=== PATIENT | male | born 1950 | race African-American/Black ===

== ENCOUNTER 2017-07-14 08:42 | Day surgery (SDC) | payer MEDICARE, BC ==
[~2017-07-14] VITALS: Ht 177.8 cm; Wt 77.1 kg
--- NOTE | ~2017-07-14 | OP ---
PATIENT NAME: STEVE MCARTHUR JR MEDICAL RECORD: [id number] :46 LOCATION:[facility] ADMISSION DATE: SURGEON: STEVE JURADO MD DATE OF OPERATION: 07/14/2017 PREOPERATIVE DIAGNOSIS: Chronic kidney disease IV. POSTOPERATIVE DIAGNOSIS: Chronic kidney disease IV REFERRING PHYSICIAN: Wilber Almaguer MD OPERATION PERFORMED: Creation of a right wrist Benjamin type radiocephalic arteriovenous fistula. SURGEON: Steve Jurado MD ANESTHESIA: Regional nerve block and general anesthesia via LMA per LOGISTICS SERVICE REPRESENTATIVE. PREOPERATIVE NOTE: Mr. Mcarthur is a very nice 66-year-old -Lithuanian male with chronic renal insufficiency who was thought to likely require dialysis within the next 6 months or a year with CKD IV. He was referred for dialysis access construction. DESCRIPTION OF PROCEDURE: With the patient under nerve block and then also general anesthesia, all per LOGISTICS SERVICE REPRESENTATIVE, he was prepped and draped in a sterile manner. The skin of the forearm and arm was treated with topical nitroglycerin and a [place] drain used as a proximal venous tourniquet. I did an examination with Duplex ultrasound and confirmed that the right radial artery, though it had some atheromatous changes and calcifications, appeared to be of adequate size and quality to support a fistula and the cephalic vein at the wrist appeared satisfactory, about 4 mm in diameter. I made a longitudinal incision along the radial aspect of the wrist and exposed the cephalic vein and radial artery. Tributaries and branches were divided between Vicryl ties and divided with electrocautery. The vein distally was ligated and then transected and bevelled. It was treated with topical papaverine and hydrostatically distended with heparinized saline and gently prepared for anastomosis. The artery was occluded proximally and distally with doubly-looped Silastic tapes. It was opened and flushed proximally and distally with heparinized saline. There was a modest atheroma just at the incision site, for which reason I extended the arteriotomy just a bit proximally and had to spatulate the vein a bit more. The vein was anastomosed at an end, a vein to side of artery with running 7-0 Prolene, and upon completion and release of the occluding loops, excellent flow immediately developed within the fistula and the suture line was hemostatic. The wound was irrigated with saline, some fibrillar was utilized to complete hemostasis and the wound was closed with interrupted inverted 3-0 Vicryl and running intracuticular 4-0 Monocryl and Dermabond glue. It was dressed in the usual manner and the patient awakened and taken to the recovery room in stable condition. He will go home today with a prescription for [place] 5/325, #14, no refills, and he will return to see me in my office next week. TRANSINT:[id number] Voice Confirmation ID: [id number] DOCUMENT ID: [id number] OPERATIVE REPORT [id number] STEVE MCARTHUR JR, JAMES MD CC: WILBER ALMAGUER MD [id number] DICTATION DATE: 07/14/17 161 LOG CUTTER: 07/14/17 1657 [facility] [address] [place] [address]
[2017-07-14] MEDS ORDERED: VITAMIN D250000 UNIT (09:10)
[2017-07-14] MEDS ORDERED: ZETIA10 MG PO (09:11)
[2017-07-14] MEDS ORDERED: [UNRECOGNIZED DRUG - OTHER] (09:12)
[2017-07-14] MEDS ORDERED: ARICEPT10 MG (09:13)
[2017-07-14] MEDS ORDERED: NORVASC5 MG PO (09:13)
[2017-07-14] MEDS ORDERED: METOPROLOL TAR100 M1 PO (09:13)
[2017-07-14] MEDS ORDERED: ZOLOFT25 MG (09:14)
[2017-07-14] MEDS ORDERED: FOLIC ACID1 MG PO (09:14)
[2017-07-14 09:29] VITALS: BP 167/77; Ht 177.8 cm; Wt 77.1 kg
[2017-07-14 09:45] LABS: HEMATOCRIT 23.6 % (42.0-54.0); HEMOGLOBIN 7.8 g/dL (13.5-17.5); LYMPHOCYTES 25.4 % (15-50); MCHC 33.1 g/dL (31.0-37.0); MCV 93.7 fL (80.0-100.0); MEAN PLATELET VOLUME 10.5 fL (7.4-10.4); NEUTROPHILS 67.6 % (40-80); PLATELET COUNT 189 10x3/uL (130-400); RBC 2.52 10x6/uL (4.20-6.10); WBC 5.4 10x3/uL (4.8-10.8)
[2017-07-14 09:54] LABS: APTT 25.6 SECONDS (22.8-39.4); INR 1.2 (0.85-1.17); PROTIME 14.8 SECONDS (11.6-15.0)
[2017-07-14 09:58] LABS: ANION GAP 11.7 mmol/L (8-16); CALCIUM 8.6 mg/dL (8.5-10.1); CARBON DIOXIDE 23.8 mmol/L (21.0-32.0); CREATININE - SERUM 4.6 mg/dL (0.6-1.3); POTASSIUM - SERUM 4.5 mmol/L (3.5-5.1)
[2017-07-14] MEDS ORDERED: HYDROCODON-ACE1 EAC7 PO (15:59)
== END 2017-07-14 17:18 | disposition home or self-care (01) ==
LOC: D.OPS 08:42
PROVIDERS: Internal Medicine Nephrology
DX: E11.22 Type 2 diabetes mellitus with diabetic chronic kidney disease (principal); I12.0 Hypertensive chronic kidney disease with stage 5 chronic kidney disease or end stage renal disease; N18.6 End stage renal disease; Z99.2 Dependence on renal dialysis; Z01.812 Encounter for preprocedural laboratory examination

== ENCOUNTER 2017-12-15 07:29 | Day surgery (SDC) | payer MEDICARE, BC ==
[~2017-12-15] VITALS: Ht 177.8 cm; Wt 76.2 kg
--- NOTE | ~2017-12-15 | OP ---
PATIENT NAME: STEVE MCARTHUR JR MEDICAL RECORD: [id number] :46 LOCATION:D[facility] ADMISSION DATE: SURGEON: STEVE JURADO MD DATE OF OPERATION: 12/15/2017 REFERRING PHYSICIAN: Dr. Jeter ANESTHESIA: Regional nerve block plus TIVA per AVIONICS MECHANIC. 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 POSTOPERATIVE DIAGNOSIS: OPERATION PERFORMED: Fistulogram with angioplasty of the arterial anastomotic and juxta-anastomotic stenoses in the cephalic vein and direct ultrasound-guided percutaneous access of the radial artery distal to the arterial anastomosis with the cephalic vein and also direct brachial artery access with ultrasound guidance above the antecubital level with brachial artery arteriogram and subsequent recanalization of the chronically occluded radial artery and balloon angioplasty. Also, radial artery arteriogram was performed from the distal radial artery stick. PREOPERATIVE NOTE: Mr. Mcarthur is a very nice 67-year-old -Anguillan male with end-stage renal disease on chronic hemodialysis who has a nonmaturing right forearm brachiocephalic AV fistula. This has been shown to be due to a radial artery cephalic vein arterial anastomotic stenosis, which could not be successfully treated percutaneously at [facility] and the patient is now brought to the operating room for an attempt at a percutaneous treatment versus open revision. It is possible that this patient may require creation of a more proximal anastomosis at the antecubital level. DESCRIPTION OF PROCEDURE: Under regional block and MAC per AVIONICS MECHANIC, the patient was placed in the supine position and the arm prepped and draped in sterile manner. I first accessed the fistula at the midforearm level using ultrasound guidance and micropuncture technique and I placed a 6-Nigerien introducer and I performed an angiogram, which revealed no evidence of stenosis as far as the right atrium proximally and distally. Retrograde filling demonstrated a severe stenosis of the JA segment and almost occlusion of the arterial anastomosis. I was able to cross in this retrograde approach with a guidewire, but I was unable to pass a balloon catheter. I then accessed the radial artery distal to the anastomosis using micropuncture technique and ultrasound guidance and placed a 6-Nigerien sheath and then injected contrast performing a radial artery arteriogram. This demonstrated, that some distance upstream far enough to be a separate lesion, there was a radial artery chronic occlusion. I was unable to pass a guidewire across this chronic occlusion from that distal approach. I then used ultrasound guidance and micropuncture technique and placed a 6-Nigerien introducer in the brachial artery above the level of the antecubital space. Subsequent arteriography revealed a patent radial artery with no lesions OPERATIVE REPORT [id number] STEVE MCARTHUR Cyndi JR of the ulna and a short bit of a patent radial artery and then total occlusion. I was, however, able to cross this area of total occlusion with a 0.035 guidewire and subsequently dilated the artery with balloon 25 mm and I was then able to pass retrograde the arterial anastomosis, probably past up into the fistula and approaching it from the brachial artery stick. I placed a guidewire and was able to dilate the arterial anastomosis and the arterial juxta-anastomotic segment with a 5 mm and then a 6 mm angioplasty balloon. Completion contrast injections demonstrated dramatic improvement in the flow in the radial artery and in the AV fistula, which essentially has a 10% or less persistent stenosis at the AAJA. The patient was heparinized during this procedure and this heparin was not reversed at the end of the procedure. The ports were removed and hemostasis obtained with direct pressure and the larger sites required [id number] 4-0 Prolene sutures. Sterile dressings were applied when the hemostasis was assured and then with an excellent pulse and thrill and continuous pulsatile Doppler flow in the fistula, the patient was awakened and taken to the recovery room. Blood loss during the operation was insignificant and none replaced, about 25 cc I estimated. No drain was used and no instruments, needles or sponges were lost and the patient had a very satisfactory result from this procedure. PLAN: The patient will be discharged and scheduled for a repeat angiogram with planned repeat dilatation of the AA and JA segments with a 6 mm Conquest balloon at [facility] next week. If this is not all rapidly successful in reaching a mature usable fistula, then the patient should have a new brachiocephalic AV fistula constructed as soon as possible. TRANSINT:[id number] Voice Confirmation ID: [id number] DOCUMENT ID: [id number] STEVE JURADO MD at 2205 CC: NUHA JETER MD [id number] DICTATION DATE: 12/28/171812 LEAD FURNACE OPERATOR: 12/29/17 0150 [facility] 12/15/17 [facility] [address] [place] [address]
[~2017-12-15 07:29] MED LIST: ARICEPT10 MG; FOLIC ACID1 MG PO; HYDROCODON-ACE1 EAC7 PO; METOPROLOL TAR100 M1 PO; NORVASC5 MG PO; VITAMIN D250000 UNIT; ZETIA10 MG PO; ZOLOFT25 MG; [UNRECOGNIZED DRUG - OTHER]
[2017-12-15 07:58] LABS: BASOPHILS 0.2 % (0-2); EOSINOPHILS 4.8 % (0-7); HEMATOCRIT 34.7 % (42.0-54.0); HEMOGLOBIN 11.5 g/dL (13.5-17.5); LYMPHOCYTES 27.6 % (15-50); MCH 31.2 pg (26.0-34.0); MCHC 33.1 g/dL (31.0-37.0); MEAN PLATELET VOLUME 11.4 fL (7.4-10.4); MONOCYTES 7.7 % (2-11); NEUTROPHILS 59.7 % (40-80); PLATELET COUNT 158 10x3/uL (130-400); RBC 3.69 10x6/uL (4.20-6.10); RDW 13.3 % (11.5-14.5); WBC 4.2 10x3/uL (4.8-10.8)
[2017-12-15 08:07] LABS: INR 1.08 (0.85-1.17); PROTIME 13.6 SECONDS (11.6-15.0)
[2017-12-15 08:53] LABS: ANION GAP 11.7 mmol/L (8-16); CALCIUM 8.5 mg/dL (8.5-10.1); CARBON DIOXIDE 28.1 mmol/L (21.0-32.0); CREATININE - SERUM 5.6 mg/dL (0.6-1.3); POTASSIUM - SERUM 3.8 mmol/L (3.5-5.1)
[2017-12-15 08:54] VITALS: BP 138/68; Ht 177.8 cm; Wt 76.2 kg
== END 2017-12-15 18:10 | disposition home or self-care (01) ==
LOC: D.OPS 07:29
PROVIDERS: Surgery
DX: T82.898A Other specified complication of vascular prosthetic devices, implants and grafts, initial encounter (principal); N18.6 End stage renal disease; I70.209 Unspecified atherosclerosis of native arteries of extremities, unspecified extremity; Z01.812 Encounter for preprocedural laboratory examination

== ENCOUNTER 2018-03-02 08:37 | Day surgery (SDC) | payer MEDICARE, BC ==
[~2018-03-02] VITALS: Ht 177.8 cm; Wt 78.0 kg
--- NOTE | ~2018-03-02 | OP ---
PATIENT NAME: STEVE MCARTHUR JR MEDICAL RECORD: [id number] :46 LOCATION:D.[facility] ADMISSION DATE: SURGEON: STEVE JURADO MD DATE OF OPERATION: 03/02/2018 REFERRING PHYSICIAN: Dr. Jeter. PREOPERATIVE DIAGNOSIS: End-stage renal disease, on dialysis. POSTOPERATIVE DIAGNOSIS: End-stage renal disease, on dialysis. OPERATION PERFORMED: Creation of a right brachiocephalic arterial venous fistula, Benjamin type. SURGEON: Steve Jurado MD ANESTHESIA: General with LMA per ORTHOPEDICS NURSE. PREOPERATIVE NOTE: This very nice 67-year-old -Zambian male from [place], presently has begun dialysis with a tunneled dialysis catheter, and about 2 weeks ago I created a brachiocephalic AV fistula in the left arm. This was to the distal brachial artery and done with a vertical incision similar to that I would use for proximal radial artery approach. The incision is healing beautifully. There is no evidence of hematoma or other complication. The fistula is of robust with good pulsation and palpable thrill and excellent continuous pulsatile Doppler flow. I have explained to and Mrs. Mcarthur that his fistula will require about 2 months to mature and during that time he will require a catheter for continued dialysis. Blood loss during the procedure was insignificant, 5 cc, unreplaced. Sponges, instruments, and needles were accounted for. No drain was used and no surgical specimen was submitted for histopathology. TRANSINT:[id number] Voice Confirmation ID: [id number] DOCUMENT ID: [id number] STEVE JURADO MD CC: NUHA JETER MD [id number] DICTATION DATE: 03/18/18 1012 PREMIX CONCRETE BATCHER: 03/18/18 1039 [facility] 03/03/18 [place] [id number] [place] [id number]
[2018-03-02 09:01] LABS: BASOPHILS 0.2 % (0-2); EOSINOPHILS 5.8 % (0-7); HEMATOCRIT 34.2 % (42.0-54.0); HEMOGLOBIN 11.3 g/dL (13.5-17.5); LYMPHOCYTES 30.4 % (15-50); MCH 31.3 pg (26.0-34.0); MCV 94.7 fL (80.0-100.0); MEAN PLATELET VOLUME 11.4 fL (7.4-10.4); MONOCYTES 11.8 % (2-11); NEUTROPHILS 51.8 % (40-80); PLATELET COUNT 155 10x3/uL (130-400); RBC 3.61 10x6/uL (4.20-6.10); WBC 4.3 10x3/uL (4.8-10.8)
[2018-03-02 09:17] LABS: APTT 26.4 SECONDS (22.8-39.4); INR 1.1 (0.85-1.17); PROTIME 13.8 SECONDS (11.6-15.0)
[2018-03-02 09:19] LABS: ANION GAP 14.2 mmol/L (8-16); CALCIUM 8.8 mg/dL (8.5-10.1); CARBON DIOXIDE 26.9 mmol/L (21.0-32.0); CREATININE - SERUM 5.5 mg/dL (0.6-1.3); POTASSIUM - SERUM 4.1 mmol/L (3.5-5.1)
[2018-03-02] MEDS ORDERED: BRILINTA90 MG PO (11:24)
[2018-03-02 11:48] VITALS: BP 157/46; Ht 177.8 cm; Wt 78.0 kg
== END 2018-03-03 01:00 | disposition home or self-care (01) ==
LOC: D.OPS 08:37 → D.M2 18:54 → D.OPS 03-03 01:00
PROVIDERS: Internal Medicine
DX: N18.6 End stage renal disease (principal); Z99.2 Dependence on renal dialysis; Z01.812 Encounter for preprocedural laboratory examination

== ENCOUNTER 2018-03-25 16:26 | Inpatient (IN) | payer MEDICARE ==
[~2018-03-25] VITALS: Ht 177.8 cm; Wt 77.1 kg
--- NOTE | ~2018-03-25 | MORECARE ---
CASE MANAGEMENT DISCHARGE SUMMARY PATIENT: STEVE GALLEGO JR UNIT: [id number] ADM DATE: 03/25/18 AGE: 67 : 48 SEX: M ROOM/BED: D.2113 AUTHOR: MERVATDOC PHYSICIAN: REFERRING PHYSICIAN: AURORA ORELLANA MD DATE OF SERVICE: 03/25/18 Discharge Plan Patient Name: STEVE GALLEGO Facility: [facility]:[place] : 1950 Planned Disposition: Home Anticipated Discharge Date: 03/27/18 Discharge Date: Expected LOS: 2 Initial Reviewer: [email or web address] Initial Review Date: 03/25/2018 Generated: 03/25/18 7:55 pm DCP- Discharge Planning Updated by [email or web address]: Emmanuelle Estevez on 03/25/18 5:[address] Patient Name: SETVE GALLEGO Admission Status: ER Accout number: [id number] Admission Date: 03-25-2018 : 1950 Admission Diagnosis: Attending: Aurora Orellana Current LOS: 1 Anticipated DC Date: 03-27-2018 Planned Disposition: Home Primary Insurance: MEDICARE A & B Discharge Planning Comments: CM met with patient and his , Steffi to complete initial dc planning assessment. CM educated patient on the CM role and verbal consent given by patient to complete assessment. Patient lives at home with his . She reports the patient is independent in his care at home. He does dialysis M-W- and she transports him to and from dialysis in [place]. She reports she is having problems with his insurance paying for his fistula procedures. Patient has Medicare and BCBS secondary. CM contacted Tim with [employer] and requested he meet with the patient and his tomorrow. At discharge patient plans to return home with his and feels this is a safe discharge. Patient and his denied known discharge needs at this time. CM will continue to follow and will assist as needed with dc plans/needs. See below for more assessment information. Children'S Book Author: Emmanuelle Estevez RN, [facility] DCPIA - Discharge Planning Initial Assessment Updated by [email or web address]: Emmanuelle Estevez on 03/25/18 6:51 pm * Is the patient Alert and Oriented? Yes * PCP Dr. Allen Schrader in [place] * Pharmacy [facility] in [place] * Preadmission Environment Home with Family * ADLs Independent * Equipment Cane Rolling Walker * List name and contact numbers for known caregivers / representatives who currently or will assist patient after discharge: Steffi Gallego - spouse - [phone] * Verbal permission to speak to the caregivers and representatives has been obtained from the patient. Yes * Community resources currently utilized Other * Please name any agencies selected above. M-W-F dialysis in [place] * Additional services required to return to the preadmission environment? No * Can the patient safely return to the preadmission environment? Yes * Has this patient been hospitalized within the prior 30 days at any hospital? No Patient Name: STEVE GALLEGO Page [id number] at 1855 All edits/amendments must be made on the electronic document DICTATION DATE: 03/25/181854 SOCIAL SERVICES SPECIALIST: PORSCHE 03/25/181854 RPT#: [id number] DC DATE: STATUS: ADM IN [facility] [address] [place] [address] END OF REPORT
--- NOTE | ~2018-03-25 | MORECARE ---
CASE MANAGEMENT DISCHARGE SUMMARY PATIENT: STEVE GALLEGO JR UNIT: [id number] ADM DATE: 03/25/18 AGE: 67 : 48 SEX: M ROOM/BED: D.2113 AUTHOR: BRAYDEN CROWELL PHYSICIAN: REFERRING PHYSICIAN: AURORA ORELLANA MD DATE OF SERVICE: 03/29/18 Discharge Plan Patient Name: STEVE GALLEGO Facility: [facility]:[place] : 1950 Planned Disposition: Home Anticipated Discharge Date: 03/27/18 Discharge Date: 03/27/2018 Expected LOS: 2 Initial Reviewer: [email or web address] Initial Review Date: 03/25/2018 Generated: 03/29/18 8:43 am DCP- Discharge Planning Updated by [email or web address]: Emmanuelle Estevez on 03/25/18 6:[address] Patient Name: STEVE GALLEGO Admission Status: ER Accout number: [id number] Admission Date: 03-25-2018 : 1950 Admission Diagnosis: Attending: Aurora Orellana Current LOS: 1 Anticipated DC Date: 03-27-2018 Planned Disposition: Home Primary Insurance: MEDICARE A & B Discharge Planning Comments: CM met with patient and his Steffi to complete initial dc planning assessment. CM educated patient on the CM role and verbal consent given by patient to complete assessment. Patient lives at home with his . She reports the patient is independent in his care at home. He does dialysis -- and she transports him to and from dialysis in [place]. She reports she is having problems with his insurance paying for his fistula procedures. Patient has Medicare and BCBS secondary. CM contacted Tim with [employer] and requested he meet with the patient and his tomorrow. At discharge patient plans to return home with his and feels this is a safe discharge. Patient and his denied known discharge needs at this time. CM will continue to follow and will assist as needed with dc plans/needs. See below for more assessment information. Button Maker And Installer: Emmanuelle Estevez RN, [facility] DCPIA - Discharge Planning Initial Assessment Updated by [email or web address]: Emmanuelle Estevez on 03/25/18 6:51 pm * Is the patient Alert and Oriented? Yes * PCP Dr. Allen Schrader in [place] * Pharmacy [facility] in [place] * Preadmission Environment Home with Family * ADLs Independent * Equipment Cane Rolling Walker * List name and contact numbers for known caregivers / representatives who currently or will assist patient after discharge: Steffi Gallego - spouse - [phone] * Verbal permission to speak to the caregivers and representatives has been obtained from the patient. Yes * Community resources currently utilized Other * Please name any agencies selected above. M-W-F dialysis in [place] * Additional services required to return to the preadmission environment? No * Can the patient safely return to the preadmission environment? Yes * Has this patient been hospitalized within the prior 30 days at any hospital? No Last DP export: 03/25/18 6:55 p Patient Name: STEVE GALLEGO Page [phone] at 0743 All edits/amendments must be made on the electronic document DICTATION DATE: 03/29/1843 HEAVY MOBILE EQUIPMENT OPERATOR: PORSCHE 03/29/18 0743 RPT#: [id number] DC DATE:03/27/18 STATUS: DIS IN [facility] [address] [place] [address] END OF REPORT
[~2018-03-25 16:26] MED LIST changes: +BRILINTA90 MG PO
[2018-03-25] MEDS ORDERED: NITROSTAT0.4 MG (16:38)
[2018-03-25] MEDS ORDERED: LIPITOR40 MG PO (16:38)
[2018-03-25] MEDS ORDERED: OMEPRAZOLE20 M1 PO (16:39)
[2018-03-25] MEDS ORDERED: NORVASC10 MG PO (16:39)
[2018-03-25] MEDS ORDERED: LEVEMIR IN100 UNITS/ SC (16:53)
[2018-03-25 19:05] LABS: BASOPHILS 1.4 % (0-2); EOSINOPHILS 2.8 % (0-7); HEMATOCRIT 32.3 % (42.0-54.0); IMMATURE GRANULOCYTES 3.5 % (0-5); LYMPHOCYTES 11.7 % (15-50); MCH 32.3 pg (26.0-34.0); MCHC 34.1 g/dL (31.0-37.0); MCV 94.7 fL (80.0-100.0); MEAN PLATELET VOLUME 11.8 fL (7.4-10.4); MONOCYTES 8.1 % (2-11); NEUTROPHILS 72.5 % (40-80); PLATELET COUNT 105 10x3/uL (130-400); RBC 3.41 10x6/uL (4.20-6.10); RDW 13.7 % (11.5-14.5); WBC 7.8 10x3/uL (4.8-10.8)
[2018-03-25 19:13] LABS: ALBUMIN 3.1 g/dL (3.4-5.0); ANION GAP 19.7 mmol/L (8-16); BILIRUBIN - TOTAL 0.34 mg/dL (0.2-1.3); CALCIUM 8.3 mg/dL (8.5-10.1); CARBON DIOXIDE 20.5 mmol/L (21.0-32.0); CREATININE - SERUM 7.4 mg/dL (0.6-1.3); POTASSIUM - SERUM 5.2 mmol/L (3.5-5.1); PROTEIN - SERUM 7.1 g/dL (6.4-8.2)
[2018-03-25 20:41] VITALS: BP 172/81
[2018-03-26 00:48] VITALS: BP 140/74
[2018-03-26 03:32] VITALS: BP 172/81; BMI 24.9
[2018-03-26 04:13] LABS: BASOPHILS 0.1 % (0-2); HEMATOCRIT 33.1 % (42.0-54.0); HEMOGLOBIN 10.9 g/dL (13.5-17.5); IMMATURE GRANULOCYTES 0.3 % (0-5); LYMPHOCYTES 7.1 % (15-50); MCH 31.6 pg (26.0-34.0); MCHC 32.9 g/dL (31.0-37.0); MCV 95.9 fL (80.0-100.0); MEAN PLATELET VOLUME 11.8 fL (7.4-10.4); MONOCYTES 5.3 % (2-11); NEUTROPHILS 86.2 % (40-80); RBC 3.45 10x6/uL (4.20-6.10); RDW 13.7 % (11.5-14.5)
[2018-03-26 04:24] LABS: PLATELET COUNT 174 10x3/uL (130-400); WBC 11.1 10x3/uL (4.8-10.8)
[2018-03-26 04:37] LABS: ALBUMIN 2.8 g/dL (3.4-5.0); ANION GAP 19.4 mmol/L (8-16); BILIRUBIN - TOTAL 0.24 mg/dL (0.2-1.3); CARBON DIOXIDE 21.1 mmol/L (21.0-32.0); CREATININE - SERUM 7.3 mg/dL (0.6-1.3); POTASSIUM - SERUM 4.5 mmol/L (3.5-5.1); PROTEIN - SERUM 7.4 g/dL (6.4-8.2)
[2018-03-26 05:36] VITALS: BP 148/74
[2018-03-26 07:35] VITALS: BP 145/75
[2018-03-26 12:45] VITALS: Ht 177.8 cm; Wt 77.1 kg
[2018-03-26 15:49] VITALS: BP 149/79
[2018-03-26 21:36] VITALS: BP 141/72
[2018-03-27 01:42] VITALS: BP 120/69
[2018-03-27 05:09] LABS: BASOPHILS 0.2 % (0-2); EOSINOPHILS 6.4 % (0-7); HEMOGLOBIN 10.3 g/dL (13.5-17.5); IMMATURE GRANULOCYTES 0.2 % (0-5); LYMPHOCYTES 22.4 % (15-50); MCH 31.5 pg (26.0-34.0); MCHC 33.2 g/dL (31.0-37.0); MCV 94.8 fL (80.0-100.0); MEAN PLATELET VOLUME 11.9 fL (7.4-10.4); MONOCYTES 11.4 % (2-11); NEUTROPHILS 59.4 % (40-80); PLATELET COUNT 148 10x3/uL (130-400); RBC 3.27 10x6/uL (4.20-6.10); RDW 13.4 % (11.5-14.5)
[2018-03-27 05:10] LABS: WBC 5.9 10x3/uL (4.8-10.8)
[2018-03-27 05:27] LABS: ANION GAP 11.4 mmol/L (8-16); CALCIUM 8.1 mg/dL (8.5-10.1); CARBON DIOXIDE 28.8 mmol/L (21.0-32.0); CREATININE - SERUM 5.8 mg/dL (0.6-1.3); PHOSPHOROUS 4.9 mg/dL (2.5-4.9); POTASSIUM - SERUM 4.2 mmol/L (3.5-5.1)
[2018-03-27 06:34] VITALS: BP 136/70
[2018-03-27 07:53] VITALS: BP 145/66
[2018-03-27] MEDS ORDERED: LEVAQUIN250 MG PO ×2 (10:12→12:02)
[2018-03-27 10:58] VITALS: BP 130/72
== END 2018-03-27 15:05 | disposition home or self-care (01) | DRG 291 ==
LOC: D.ER 16:26 → D.M2 18:31 → D.EDHOLD 18:31 → D.M2 18:39
PROVIDERS: Family Medicine; Internal Medicine Nephrology
PROC: 5A1D70Z Performance of Urinary Filtration, Intermittent, Less than 6 Hours Per Day (ICD-10-PCS; principal; 2018-03-26)
DX: I13.2 Hypertensive heart and chronic kidney disease with heart failure and with stage 5 chronic kidney disease, or end stage renal disease (principal); J18.9 Pneumonia, unspecified organism; N18.6 End stage renal disease; E11.22 Type 2 diabetes mellitus with diabetic chronic kidney disease; I50.9 Heart failure, unspecified; Z99.2 Dependence on renal dialysis; Z91.15 Patient's noncompliance with renal dialysis; K21.9 Gastro-esophageal reflux disease without esophagitis; F32.9 Major depressive disorder, single episode, unspecified; E78.5 Hyperlipidemia, unspecified; D63.1 Anemia in chronic kidney disease; E83.39 Other disorders of phosphorus metabolism; Z86.73 Personal history of transient ischemic attack (TIA), and cerebral infarction without residual deficits

== ENCOUNTER 2018-06-22 08:24 | Day surgery (SDC) | payer MEDICARE, BC ==
[~2018-06-22] VITALS: Ht 177.8 cm; Wt 80.3 kg
--- NOTE | ~2018-06-22 | OP ---
PATIENT NAME: STEVE MCARTHUR JR MEDICAL RECORD: [id number] :46 LOCATION:[facility] ADMISSION DATE: SURGEON: STEVE JURADO MD DATE OF OPERATION: 06/22/2018 REFERRING PHYSICIAN: Preet Jeter MD DIAGNOSES: End-stage renal disease, dependence on hemodialysis. Nonmaturing right brachiocephalic AV fistula. POSTOPERATIVE DIAGNOSES: End-stage renal disease, dependence on hemodialysis. Nonmaturing right brachiocephalic AV fistula. OPERATION PERFORMED: Implantation of AV graft as revision of right arm AV fistula with graft implanted between the arterialized median cephalic vein and the proximal basilic vein in the right upper extremity. SURGEON: Steve Jurado MD ANESTHESIA: General with LMA per ASSISTANT PROFESSOR OF GEOGRAPHY. PREOPERATIVE NOTE: Mr. Mcarthur is a very nice 67-year-old -Ivorian male patient from [place]. He has dialysis there via a tunneled dialysis catheter 3 days a week. He has had catheter for about a year. He had a brachiocephalic AV fistula created quite a while ago and it has not matured. Angiography reveals stenosis of the median cubital vein at the confluence with the cephalic vein. Multiple stenoses within the cephalic vein and the cephalic arch. This fistula will never work. He could be a candidate for a brachial artery to translocated basilic fistula, but that would probably add another couple of months to his present catheter contact time and I think it is going to be better if we convert the present fistula to a graft using the proximal basilic vein as the outflow. Under general anesthesia in supine position, the patient was prepped and draped in sterile manner. I examined the patient with Duplex ultrasound to locate the basilic vein in the upper arm. It was of very good caliber, fully compressible, and normal in all ways sonographically. I made a longitudinal incision and exposed the vein and controlled it proximally and distally with Silastic loops. I then made an oblique incision across the antecubital space directly over the arterialized median cubital vein segment and dissected that vein circumferentially and controlled it just proximal to the arterial anastomosis and then ligated the 2 outflow veins with 2-0 Vicryl and then transected the vein. They are just at the confluence. The vein was flushed with heparinized saline and clamped again. It was of good caliber, about 10 mm in diameter. I chose an artery graft. It was properly rinsed, prepared, and then sutured end-to-end to that median cubital vein with running 7-0 Prolene. The artery graft was then placed in a very superficial subcutaneous tunnel, going up to the proximal incision, where it was shortened and beveled. The basilic vein opened, flushed with heparinized saline, and the graft was then anastomosed end of graft to side of basilic vein with running 6-0 Prolene. The suture lines were both treated with Evicel, and after proper time had elapsed and the clamps were released, excellent flow developed immediately within the new graft and the suture lines were completely hemostatic. Doppler examination revealed great pulsatile continuous flow within the graft, in the median cubital vein, in the brachial artery, in the antecubital space, and in the radial artery at the wrist. The wounds were irrigated with Ancef and gentamicin solution, OPERATIVE REPORT [id number] STEVE MCARTHUR JR infiltrated with 0.25% Marcaine without epinephrine, and closed with interrupted inverted 3-0 Vicryl and running intracuticular 4-0 Monocryl. The incisions were sealed with glue and dressed with Maxorb Ag, Tegaderm, and Cavilon skin prep. The patient, in stable condition, awakened and taken to the recovery room. PLAN: The patient should be able to go home today. I will leave a prescription for [place] 5/325, #14 of them, he can take one p.o. q. 4 hours as needed for pain. An appointment will be arranged for him to see me in my office next week. He is to continue his same medications, diet, activities, etc. Continue his same established dialysis schedule on Thursday, Thursday, and Thursday in [place]. TRANSINT:[id number] Voice Confirmation ID: [id number] DOCUMENT ID: [id number] cc: [place] [facility] STEVE JURADO MD CC: [facility] and PREET JETER MD [id number] DICTATION DATE: 06/22/18 1245 HEDDLER: 06/22/[address] [facility] 06/22/18 [facility] [address] [place] [address]
[~2018-06-22 08:24] MED LIST changes: +LEVAQUIN250 MG PO; +LEVEMIR IN100 UNITS/ SC; +LIPITOR40 MG PO; +NITROSTAT0.4 MG; +NORVASC10 MG PO; +OMEPRAZOLE20 M1 PO
[2018-06-22 09:05] LABS: BASOPHILS 0.2 % (0-2); EOSINOPHILS 5.4 % (0-7); HEMATOCRIT 35.3 % (42.0-54.0); HEMOGLOBIN 11.7 g/dL (13.5-17.5); IMMATURE GRANULOCYTES 0.2 % (0-5); LYMPHOCYTES 25.8 % (15-50); MCH 31.7 pg (26.0-34.0); MCHC 33.1 g/dL (31.0-37.0); MCV 95.7 fL (80.0-100.0); MEAN PLATELET VOLUME 11.3 fL (7.4-10.4); NEUTROPHILS 57.4 % (40-80); PLATELET COUNT 159 10x3/uL (130-400); RBC 3.69 10x6/uL (4.20-6.10); RDW 13.1 % (11.5-14.5); WBC 4.3 10x3/uL (4.8-10.8)
[2018-06-22 09:18] LABS: APTT 27.1 SECONDS (22.8-39.4); INR 1.07 (0.85-1.17); PROTIME 13.4 SECONDS (11.6-15.0)
[2018-06-22 09:19] LABS: ANION GAP 13.7 mmol/L (8-16); CALCIUM 8.5 mg/dL (8.5-10.1); CARBON DIOXIDE 27.3 mmol/L (21.0-32.0); CREATININE - SERUM 6.4 mg/dL (0.6-1.3)
[2018-06-22] MEDS ORDERED: AMBIEN5 MG PO (09:36)
[2018-06-22 09:41] VITALS: BP 154/77; Ht 177.8 cm; Wt 80.3 kg
[2018-06-22] MEDS ORDERED: HYDROCODON-ACE1 EAC7 PO (12:31)
== END 2018-06-22 15:11 | disposition home or self-care (01) ==
LOC: D.OPS 08:24
PROVIDERS: Surgery
DX: T82.590A Other mechanical complication of surgically created arteriovenous fistula, initial encounter (principal); I12.0 Hypertensive chronic kidney disease with stage 5 chronic kidney disease or end stage renal disease; N18.6 End stage renal disease; Z99.2 Dependence on renal dialysis; Z01.812 Encounter for preprocedural laboratory examination

== ENCOUNTER 2020-10-24 12:38 | Inpatient (IN) | payer MEDICARE ==
[~2020-10-24] VITALS: Ht 177.8 cm; Wt 83.9 kg
--- NOTE | ~2020-10-24 | EC ---
PATIENT:STEVE MCARTHUR JR DATE OF SERVICE: 10/24/20 SEX: M MEDICAL RECORD: [id number] DATE OF : [birth year] LOCATION:D.M2 D.212 AGE OF PATIENT: 69 ADMISSION DATE: 10/24/20 REFERRING PHYSICIAN: INTERPRETING PHYSICIAN: PILAR ZELAYA MD ECHOCARDIOGRAM REPORT ECHO CHARGES 4 ECHO COMPLETE Date: 10/25/20 CLINICAL DIAGNOSIS: SYNCOPE ECHOCARDIOGRAPHIC MEASUREMENTS (adult normal given) AC root (d.<3.7cm) 3.6 cm LV Septum d (<1.2 cm> 1.1 cm Valve Excursion 2.1 cm LV Septum (systole) 1.7 cm Left Atria (s.<4.0cm> 5.0 cm LVPW d(<1.2cm) 1.2 cm RV (d.<2.3cm) 4.1 cm LVPW (sytole) 1.0 cm LV diastole(<5.6CM) 6.3 cm MV E-F(>70mm/sec) cm LV systole 4.0 cm LVOT Diameter 2.0 cm MV exc.(>10mm) cm Est.ejection fraction (50-75%) 55 % DOPPLER: LVIT cm/sec A 0.6 cm/sec E 1.3 cm/sec LA cm/sec RVSP 31 mmHg LVOT 87 cm/sec AOP1/2T m/s Asc. Ao 167 cm/sec RVOT 100 cm/sec RA 5.0 cm/sec PA 112 cm/sec AV Gradient Peak 11 mmHg AV Mean 5 mmHg AV Area 2.1 cm MV Gradient Peak 8 mmHg MV Mean 3 mmHg MV Area cm COMMENTS: Health Technician: Hilaria MENDEZ Worker'S Compensation Claims Examiner: 3 Dr. Chinchilla TAPE# Pericardial Effusion Y DATE OF SERVICE: Adequate 2D, color flow imaging, spectral Doppler, and M-Mode. No LVH. LV internal dimensions are normal. Wall motion normal. EF greater than or equal to 55%. Aortic valve is tricuspid. No evidence of stenosis by Doppler interrogation. Left atrium is dilated at 5.0 cm. Mitral valve shows no prolapse. Mild MR. Right-sided chambers are grossly normal. Trace TR. TRANSINT:[id number] Voice Confirmation ID: [id number] DOCUMENT ID: [id number] ECHOCARDIOGRAM REPORT [id number] STEVE MCARTHUR [place] MD CC: [id number] DICTATION DATE: 10/26/20910 [employer] PROFESSIONALS: 10/26/20 1124 ADM IN [place] [id number] [place] [id number]
[~2020-10-24 12:38] MED LIST changes: +AMBIEN5 MG PO
[2020-10-24] MEDS ORDERED: AMBIEN5 MG (13:17)
[2020-10-24] MEDS ORDERED: COREG25 MG (13:18)
[2020-10-24] MEDS ORDERED: LINZESS145 MCG (13:18)
--- NOTE | 2020-10-24 13:55 | NUR ---
TO CT VIA STRETCHER
[2020-10-24 14:43] LABS: BASOPHILS 0.5 % (0-2); EOSINOPHILS 0.2 % (0-7); HEMATOCRIT 29.1 % (42.0-54.0); HEMOGLOBIN 9.9 g/dL (13.5-17.5); LYMPHOCYTES 5.6 % (15-50); MCH 31.2 pg (26.0-34.0); MCV 91.5 fL (80.0-100.0); MEAN PLATELET VOLUME 8.5 fL (7.4-10.4); NEUTROPHILS 91.7 % (40-80); PLATELET COUNT 152 10x3/uL (130-400); RBC 3.18 10x6/uL (4.20-6.10); RDW 15.8 % (11.5-14.5); WBC 6.5 10x3/uL (4.8-10.8)
--- NOTE | 2020-10-24 14:50 | NUR ---
GLUCOSE 165
[2020-10-24 14:56] LABS: CALC OSMOLALITY 289 mosm/kg (275-300); CALCIUM 8.5 mg/dL (8.5-10.1); CARBON DIOXIDE 25.5 mmol/L (21.0-32.0); CHLORIDE - SERUM 105 mmol/L (98-107); CREATININE - SERUM 7.5 mg/dL (0.6-1.3); POTASSIUM - SERUM 3.8 mmol/L (3.5-5.1); SODIUM 141 mmol/L (136-145); UREA NITROGEN 26 mg/dL (7-18); eGFR NON AFRICAN AMERICAN 8 mL/min (90-120)
[2020-10-24 14:57] LABS: GLUCOSE 176 mg/dL (74-106)
[2020-10-24 15:00] LABS: APTT 27.1 SECONDS (22.8-39.4); INR 1.29 (0.85-1.17); PROTIME 14.9 SECONDS (11.6-15.0)
[2020-10-24 15:06] LABS: ALBUMIN 3.2 g/dL (3.4-5.0); ALKALINE PHOSPHATASE 52 U/L (30-120); ALT (SGPT) 12 U/L (10-68); CKMB 1.7 U/L (0.0-3.6); CREATINE KINASE 118 UL (21-232); MAGNESIUM - SERUM 1.9 mg/dL (1.8-2.4); PROTEIN - SERUM 6.8 g/dL (6.4-8.2); THYROID STIMULATING HORMONE 1.66 uIU/mL (0.36-3.74); TROPONIN-I 0.019 ng/mL (0.000-0.060)
--- NOTE | 2020-10-24 18:50 | NUR ---
Arrived to unit via stretcher in stable condition accompanied by hospital staff and family member, no s/s of acute distress observed.
--- NOTE | 2020-10-24 20:15 | NUR ---
REPORT RECEIVED. PT A&O, RESTING IN BED. NO S/S OF DISTRESS OBSERVED. RR EVEN & UNLABORED ON RA. IV TO R WRIST AND L CHEST SL AND PATENT. BED LOCKED AND LOWERED, CL IN REACH. ASSESSMENT COMPLETE. WILL CONT POC.
[2020-10-25] VITALS: BP 106/70
[2020-10-25 04:00] VITALS: BP 143/68
[2020-10-25 05:34] VITALS: BP 156/68; BMI 26.6
[2020-10-25 10:48] LABS: BASOPHILS 0 % (0-2); EOSINOPHILS 0.8 % (0-7); HEMOGLOBIN 9.1 g/dL (13.5-17.5); LYMPHOCYTES 5.9 % (15-50); MCHC 33.7 g/dL (31.0-37.0); MEAN PLATELET VOLUME 8.8 fL (7.4-10.4); MONOCYTES 3.1 % (2-11); NEUTROPHILS 90.2 % (40-80); PLATELET COUNT 153 10x3/uL (130-400); RBC 2.94 10x6/uL (4.20-6.10); RDW 15.6 % (11.5-14.5); WBC 7.6 10x3/uL (4.8-10.8)
[2020-10-25 11:18] LABS: ANION GAP 13.1 mmol/L (8-16); BILIRUBIN - TOTAL 0.55 mg/dL (0.2-1.3); CALCIUM 8.7 mg/dL (8.5-10.1); CARBON DIOXIDE 26.5 mmol/L (21.0-32.0); CREATININE - SERUM 8.4 mg/dL (0.6-1.3); POTASSIUM - SERUM 3.6 mmol/L (3.5-5.1); PROTEIN - SERUM 6.2 g/dL (6.4-8.2)
[2020-10-25 12:14] VITALS: Ht 177.8 cm; Wt 83.9 kg
[2020-10-25] MEDS ORDERED: KEPPRA500 MG PO (13:13)
[2020-10-25 13:35] VITALS: BP 150/66
--- NOTE | 2020-10-25 16:07 | NUR ---
[facility]PON[facility] CALLED. PATIENT PRESENTS WITH SEIZURE ACTIVITY WHILE GETTING READY TO GO HOME. SEE [facility]APID RESPONSE SHEET.
[2020-10-25 20:21] VITALS: BP 127/68
--- NOTE | 2020-10-25 21:30 | NUR ---
REPORT RECEIVED. PT A&O, UP IN BED WITH AT BEDSIDE. NO S/S OF DISTRESS OBSERVED. RR EVEN & UNLABORED ON 3L. SR 70 ON TELE. NO IV ACCESS, D/C'ED ON DAYSHIFT. WILL ATTEMPT ACCESS THIS SHIFT. BED LOCKED AND LOWERED, CL IN REACH. ASSESSMENT COMPLETE. WILL CONT POC.
[2020-10-25 23:51] VITALS: BP 125/64
[2020-10-26 06:44] LABS: ALBUMIN 2.8 g/dL (3.4-5.0); ANION GAP 12.6 mmol/L (8-16); BILIRUBIN - TOTAL 0.44 mg/dL (0.2-1.3); CALCIUM 8.4 mg/dL (8.5-10.1); CARBON DIOXIDE 25.8 mmol/L (21.0-32.0); CREATININE - SERUM 9.4 mg/dL (0.6-1.3); POTASSIUM - SERUM 3.4 mmol/L (3.5-5.1); PROTEIN - SERUM 5.9 g/dL (6.4-8.2)
[2020-10-26 07:01] LABS: BASOPHILS 0.3 % (0-2); EOSINOPHILS 2.5 % (0-7); HEMOGLOBIN 8.5 g/dL (13.5-17.5); LYMPHOCYTES 13.3 % (15-50); MCH 31.2 pg (26.0-34.0); MEAN PLATELET VOLUME 9.3 fL (7.4-10.4); MONOCYTES 5.9 % (2-11); PLATELET COUNT 136 10x3/uL (130-400); RBC 2.72 10x6/uL (4.20-6.10); RDW 15.6 % (11.5-14.5); WBC 5.8 10x3/uL (4.8-10.8)
--- NOTE | 2020-10-26 07:15 | NUR ---
DOWN TO DIALYSIS.
[2020-10-26] MEDS ORDERED: KEPPRA750 MG PO (09:29)
--- NOTE | 2020-10-26 11:43 | NUR ---
BACK FROM DIALYSIS.
--- NOTE | 2020-10-26 15:26 | NUR ---
TAKEN DOWN TO ED ENTRANCE VIA WHEELCHAIR.
== END 2020-10-26 15:26 | disposition home or self-care (01) | DRG 64 ==
LOC: D.ER 12:38 → D.M2 13:19 → D.EDHOLD 13:19 → D.M2 17:10
PROVIDERS: Family Medicine; ADMIT Family Medicine; ATTEND Family Medicine
PROC: 5A1D70Z Performance of Urinary Filtration, Intermittent, Less than 6 Hours Per Day (ICD-10-PCS; principal; 2020-10-24)
DX: I63.9 Cerebral infarction, unspecified (principal); N18.6 End stage renal disease; I13.2 Hypertensive heart and chronic kidney disease with heart failure and with stage 5 chronic kidney disease, or end stage renal disease; R56.9 Unspecified convulsions; R41.3 Other amnesia; E11.22 Type 2 diabetes mellitus with diabetic chronic kidney disease; I50.9 Heart failure, unspecified; Z99.2 Dependence on renal dialysis